=== PATIENT | female | born 1955 | race Caucasian/White ===

== ENCOUNTER 2024-11-07 09:22 | Emergency (ER) | payer OTHER, SELFPAY ==
--- NOTE | 2024-11-07 09:30 | ED.GENADULT ---
HPI - General Adult General Chief complaint: Wound/Laceration Stated complaint: cat bite Time Seen by Provider: 11/07/24 09:30 Source: patient Mode of arrival: ambulatory Limitations: no limitations History of Present Illness HPI narrative: 69-year-old female patient presents to the [facility] with complaints of a cat bite to the left wrist area about 2-3 days ago. Patient states she has several HER PROPERTY AND 1 OF THEM THAT LIVES MOSTLY OUTSIDE BIT HER ABOUT 2-3 DAYS AGO WHEN SHE WAS FEEDING AND TRYING TO PICK HIM UP. PATIENT STATES THAT THIS CAT IS FAIRLY NEW TO THEIR FAMILY AND THEREFORE THEY DID HAVE IT STAYED AND RABIES SHOT DONE IN SEPTEMBER OF 2024. PATIENT UNKNOWN OF WHEN HER LAST TETANUS SHOT WAS. Related Data Allergies Allergy/AdvReac Type Severity Reaction Status Date / Time No Known Allergies Allergy Verified 11/07/24 09:40 Review of Systems Review of Systems: CONSTITUTIONAL: Denies fever, chills, or sweats. EYES: Denies visual changes, redness, or discharge. ENT: Denies rhinorrhea, congestion, sore throat, or otalgia. CARDIOVASCULAR: Denies chest pain, palpitations, or edema. RESPIRATORY: Denies cough or dyspnea. GASTROINTESTINAL: Denies abdominal pain, nausea, vomiting, or diarrhea. GENITOURINARY: Denies dysuria or hematuria. SKIN: Denies rash or itching. Positive wound noted to the left wrist area. MUSCULOSKELETAL: Denies back pain, joint pain, or myalgia. NEUROLOGIC: Denies headache, numbness, or weakness. PSYCHIATRIC: Denies anxiety or depression. [facility] Past Medical History Medical History (Updated 11/07/24 @ 10:07 by ADE Martinez) No significant past medical history Comments At the time of my signature I agree with nursing past medical history, surgical, social, and family history. There is no relevant family history pertinent to the presenting complaint. Exam Narrative: GENERAL: Well-appearing, well-nourished, and in no acute distress. HEAD: Normocephalic, atraumatic. EYES: PERRLA and EOMI. ENT: Nares clear, no rhinorrhea or epistaxis. Mucous membranes moist. NECK: Supple. No lymphadenopathy CHEST: Clear to auscultation. No respiratory distress. HEART: Regular rate and rhythm. No murmur heard. Normal peripheral pulses. ABDOMEN: Soft, nontender, nondistended, normal active bowel sounds. EXTREMITIES: Normal range of motion. No edema. SKIN: Warm, dry, no rash. patient has approximately 4.5 x 3 cm erythemic warm area to anterior left wrist with what appears to be a raised white pus pocket in the middle. There is no drainage noted at this time. Patient has excellent range of motion and no pain to the joint area. Denies fevers, body aches or chills. NEURO: No focal deficits. Alert and oriented x3. Course Course Level of Care: Express Care Visit Vital Signs Vital signs: Vital Signs Temperature 36.5 C 11/07/24 09:40 Pulse Rate 96 11/07/24 09:40 Respiratory Rate 18 11/07/24 09:40 Blood Pressure 149/70 H 11/07/24 09:40 Pulse Oximetry 100 11/07/24 09:40 Oxygen Delivery Room Air 11/07/24 09:40 Temperature 36.5 C 11/07/24 09:40 Pulse Rate 96 11/07/24 09:40 Respiratory Rate 18 11/07/24 09:40 Blood Pressure 149/70 H 11/07/24 09:40 Pulse Oximetry 100 11/07/24 09:40 Oxygen Delivery Room Air 11/07/24 09:40 vital signs reviewed Medical Decision Making MDM Narrative Medical decision making narrative: The erythemic area was marked with a pen and patient was explained that if the redness starts going outside of that area she will need to go to the ER and obtain IV antibiotics. We will discharge her home with oral antibiotics today along with an antibiotic ointment for dressing changes. Dressing changes were explained to the patient. And we will update her tetanus shot prior to leaving. Patient verbalized understanding denies any other questions or concerns at this time. Differential Diagnosis Differential Diagnosis: differential diagnosis: Abscess, cellulitis, hidradenitis, laceration, puncture wound. Vital Signs Vital Signs: Vital Signs Temperature 36.5 C 11/07/24 09:40 Pulse Rate 96 11/07/24 09:40 Respiratory Rate 18 11/07/24 09:40 Blood Pressure 149/70 H 11/07/24 09:40 Pulse Oximetry 100 11/07/24 09:40 Oxygen Delivery Room Air 11/07/24 09:40 Temperature 36.5 C 11/07/24 09:40 Pulse Rate 96 11/07/24 09:40 Respiratory Rate 18 11/07/24 09:40 Blood Pressure 149/70 H 11/07/24 09:40 Pulse Oximetry 100 11/07/24 09:40 Oxygen Delivery Room Air 11/07/24 09:40 Critical Care Time Critical Care Time Critical Care Time: No Discharge Plan Discharge Clinical Impression: Cat bite involving extremity Patient Disposition: Home, Self-Care Condition: Stable Instructions: Antibiotic Form, Animal Bite (ED) Additional Instructions: Normal bites can cause infection. Teeth carried germs into the skin. Sometimes these wounds should be closed, especially on the face, but is usually better to let it heal on its own because this decreases the chance of infection. Call your doctor or return to the emergency department if patient worsens or: Fever occurs. Redness or swelling occurs near the wound. Pus found in the wound. Chills, nausea, or vomiting occur. Pain is worse. Joints become painful. Keep the wound clean. She was soap and water. Tetanus shots: Everyone should have a tetanus shot every 5-10 years. He received a tetanus shot today, be sure to tell your primary care doctor about this to update your shot record. Some tetanus shots are combination shots, such as tetanus-diphtheria (Td), or tetanus- diphtheria- pertussis (Tdap). Tell your primary doctor which when you received. If you're not sure about her tetanus status, her doctor's office tomorrow to find out whether you need a booster shot. Rabies: If you need shots to prevent rabies, you will need several shots. He might need to report this to animal control or the local police. These refer to the deep provided to you at check in regards to the rabies shots. Patient Language: Ukrainian Prescriptions: New amoxicillin-pot clavulanate 875-125 mg tablet 2 tablet PO Q12H 7 Days Qty: 28 0RF mupirocin [Centany] 2 % ointment 1 applic topical BID Qty: 22 0RF Follow-up/Referrals: Yancy,Julia Mcmahan NP [Primary Care Provider] - Time of Disposition: 10:04
[2024-11-07 09:40] VITALS: BP 149/70; PULSE 96; RESP 18; TEMP 36.5; O2SAT 100
[2024-11-07] MEDS: TETANUS,DIPHTHERIA,AC PERTUSSIS ADULT (0.5 ML) BOOSTRIX IM (10:11)
== END 2024-11-07 10:10 | disposition home or self-care (01) ==
PROVIDERS: Emergency Provider Nurse Practitioner Family; PCP Nurse Practitioner Family
DX: S61.552A Open bite of left wrist, initial encounter (principal); W55.01XA Bitten by cat, initial encounter; Z23 Encounter for immunization
CPT/HCPCS: 90471; 90715; 99213; G0463